=== PATIENT | female | born 1975 | race Two or more races ===

== ENCOUNTER 2019-09-22 10:23 | Emergency (ER) | payer MEDICAID ==
[~2019-09-22] VITALS: Ht 177.8 cm; Wt 82.1 kg
--- NOTE | 2019-09-22 10:42 | NUR ---
SENT BY URGENT CARE FOR WORSENING BACK PAIN R/T LEFT HIP/THIGH PS 10, GIVEN TORADOL, DECADRON ZOFRAN WITH NO RELIEF. TO ER BED 6, HOOKED TO MONITOR, CHANGED TO HOSPITAL GOWN, AWAITING MD NEWMAN.
--- NOTE | 2019-09-22 11:18 | NUR ---
DR GROVER AT BEDSIDE
[2019-09-22] MEDS ORDERED: IV NS 0.9% 1,000 ML BAG IV ONE (11:30)
[2019-09-22] MEDS ORDERED: ONDANSETRON HCL/PF 4 MG/2 ML VIAL IVP ONE (11:30)
[2019-09-22] MEDS ORDERED: MORPHINE SULFATE INJ 2 MG/ML DISP.SYRIN IV ONE (11:30)
[2019-09-22] MEDS ORDERED: DIAZEPAM 10 MG TABLET PO ONE (11:30)
[2019-09-22 11:37] LABS: BASOPHILS % (AUTO) 0.1 % (0.0-2.0); EOSINOPHILS % (AUTO) 0.6 % (0.0-6.0); HEMATOCRIT 47 % (33-45); HEMOGLOBIN 15.4 g/dL (11.5-14.8); LYMPHOCYTES # (AUTO) 0.5 /CMM (0.8-4.8); LYMPHOCYTES % (AUTO) 3.3 % (20.0-44.0); MEAN CORPUSCULAR HGB CONC 33 g/dl (31.0-36.0); MEAN CORPUSCULAR VOLUME 91 fL (82-100); MONOCYTES # (AUTO) 0.2 /CMM (0.1-1.30); MONOCYTES % (AUTO) 1.4 % (2.0-12.0); NEUTROPHILS # (AUTO) 13.4 /CMM (1.8-8.9); NEUTROPHILS % (AUTO) 94.6 % (43.0-81.0); PLATELET COUNT (AUTO) 346 /CMM (150-450); RED BLOOD CELL COUNT(AUTO) 5.14 MIL/uL (4.0-5.2); WHITE BLOOD COUNT (AUTO) 14.1 K/uL (4.3-11.0)
[2019-09-22] MEDS ORDERED: ONDANSETRON HCL/PF 4 MG/2 ML VIAL ONE (11:38)
[2019-09-22] MEDS ORDERED: MORPHINE SULFATE INJ 4 MG/ML DISP.SYRIN ONE (11:38)
[2019-09-22] MEDS ORDERED: DIAZEPAM 5 MG TABLET ONE (11:38)
[2019-09-22 11:48] LABS: CALCIUM, SERUM 10.3 mg/dL (8.5-10.1); POTASSIUM 3.3 mmol/L (3.5-5.1)
--- NOTE | 2019-09-22 11:48 | NUR ---
PATIENT WHEELED OUT VIA GURNEY FOR CT SCAN
[2019-09-22 12:02] LABS: ALBUMIN 4.6 g/dL (3.4-5.0); BILIRUBIN,DIRECT 0.1 mg/dL (0.0-0.2); BILIRUBIN,TOTAL 0.6 mg/dL (0.2-1.0); TOTAL PROTEIN, SERUM 8.5 g/dL (6.4-8.2)
--- NOTE | 2019-09-22 12:03 | NUR ---
BACK FROM CT SCAN
[2019-09-22 13:00] LABS: APPEARANCE,URINE Clear (CLEAR); BILIRUBIN,URINE Negative (NEGATIVE); BLOOD, URINE Negative Ery/uL (NEGATIVE); COLOR,URINE Yellow (YELLOW); KETONES,URINE 40 (NEGATIVE); LEUKOCYTE ESTERASE ,URINE Negative (NEGATIVE); NITRITE, URINE Negative (NEGATIVE); PROTEIN,URINE Negative (NEGATIVE); UGLUCOSE Negative (NEGATIVE); UROBILINOGEN,URINE 0.2 EU/dL (0.2)
[2019-09-22 13:01] LABS: PH,URINE >9.0 (5.0-8.0)
[2019-09-22 13:03] LABS: BACTERIA,URINE Rare /HPF (None Seen); RBC,URINE 0-2 /HPF (0-2); SQUAMOUS EPITHELIAL CELL,UR Few /HPF (None Seen); WBC,URINE 0-2 /HPF (0-3)
[2019-09-22] MEDS ORDERED: KETOROLAC TROMETHAMINE 15 MG/ML VIAL ONE (13:15)
[2019-09-22] MEDS ORDERED: HYDROCODONE/APAP 10/325MG 1 EA TABLET ONE (13:15)
[2019-09-22] MEDS ORDERED: HYDROCODONE/APAP 10/325MG 1 EA TABLET PO ONE (13:30)
[2019-09-22] MEDS ORDERED: KETOROLAC TROMETHAMINE INJ 30 MG/ML VIAL IV ONE (13:30)
[2019-09-22 14:55] VITALS: BP 136/97
--- NOTE | 2019-09-22 14:56 | NUR ---
Patient discharged to home in stable condition. Written and verbal after care instructions given. Patient verbalizes understanding of instruction.IV removed. Catheter intact and site benign. Pressure and 4x4 applied to site. No bleeding noted.
== END 2019-09-22 14:56 | disposition home or self-care (01) ==
LOC: ER 10:26
DX: M54.42 Lumbago with sciatica, left side (principal); J45.909 Unspecified asthma, uncomplicated; E03.9 Hypothyroidism, unspecified; Z88.2 Allergy status to sulfonamides
CPT/HCPCS: 36415; 72131; 80048; 80076; 81001; 83690; 84703; 85025; 96374; 96375; 99284; J1885; J2270; J2405; J7030; 81000-TC